=== PATIENT | male | born 1985 | race Caucasian/White ===

== ENCOUNTER 2020-12-23 19:27 | Emergency (ER) | payer MEDICAID, OTHER ==
[~2020-12-23] VITALS: Ht 165.1 cm; Wt 55.0 kg
--- NOTE | 2020-12-23 19:41 | ED General ---
General Stated Complaint: CARDIAC ARREST History of Present Illness Date Seen by Provider: Dec 23, 2020 Time Seen by Provider: 19:36 Initial Comments 35-year-old male brought in by EMS. Patient was called out on a nonresponsive male. Male has multiple chronic medical issues is on dialysis. Patient was taking home dialysis when the family noticed he went unresponsive. There was approximately 20 minutes of nonresponsive episode. When EMS arrived initial rhythm showed asystole. Patient received 2 rounds of epi with return to [facility]. Patient's blood sugar was initially 26 he received 2 A of D50. He received amp of sodium bicarb. Patient was intubated in the field. Patient was started to have spontaneous breathing and was given 5 the VAC and 5 mg Versed. Upon arrival to the ER. Patient intubated, unable to provide any HPI. Heart rate is 80 with sinus rhythm. Patient does have significant amount of diarrheal stools that smell somewhat like C. difficile. No reports of recent illness. Allergies and Home Medications Allergies Coded Allergies: No Allergy Information Available (Unverified , 12/23/20) intubated, post cpr Patient Home Medication List Home Medication List Reviewed: Yes Review of Systems Review of Systems Constitutional: see HPI EENTM: see HPI Respiratory: see HPI Cardiovascular: see HPI Genitourinary: see HPI Musculoskeletal: see HPI Skin: see HPI Psychiatric/Neurological: See HPI Patient intubated unable to provide further information Past Yhpgnig-Nizeez-Zsvsvi Hx Past Med/Social Hx: Reviewed Nursing Past Med/Soc Hx Physical Exam Vital Signs Vital Signs - First Documented 12/23/20 12/23/20 19:45 21:55 Temp 35.8 Pulse 87 Resp 16 B/P (MAP) 68/46 (53) Pulse Ox 95 O2 Delivery Ambu Bag O2 Flow Rate 15.00 Capillary Refill : Height, Weight, BMI Height: '" Weight: lbs. oz. kg; BMI Method: General Appearance: Other (Intubated, large amount of watery stool) Respiratory: Lungs Clear, Other (Intubated) Cardiovascular: Regular Rate, Rhythm, Normal Peripheral Pulses Gastrointestinal: Other (Large midline scar) Neurologic/Psychiatric: Other (Intubated, unable to obtain) Skin: Other (Port in right chest, IO in left femur) Focused Exam Possible Source: Other (post cpr, cardiac arrest ) Lactate Level 12/23/20 19:35: Lactic Acid Level 13.18*H Respiratory: Other (intubated on vent ) Cardiovascular: Regular Rate, Rhythm, No Edema Peripheral Pulses: 1+ Carotid (R), 1+ Carotid (L) Lactic Acid Level Laboratory Tests Test 12/23/20 19:35 Lactic Acid Level 13.18 MMOL/L (0.50-2.00) *H Progress/Results/Core Measures Suspected Sepsis SIRS Temperature: Pulse: Respiratory Rate: Laboratory Tests 12/23/20 19:35: White Blood Count 9.2 Blood Pressure / Mean: 12/23/20 19:35: Lactic Acid Level 13.18*H Laboratory Tests 12/23/20 19:35: Creatinine 6.11H, Platelet Count 64L, Total Bilirubin 0.6 Results/Orders Lab Results Laboratory Tests Test 12/23/20 19:35 12/23/20 19:54 12/23/20 20:27 12/23/20 20:52 Range/Units White Blood Count 9.2 4.3-11.0 10^3/uL Red Blood Count 3.73 L 4.35-5.85 10^6/uL Hemoglobin 10.9 L 13.3-17.7 G/DL Hematocrit 38 L 40-54 % Mean Corpuscular Volume 101 H 80-99 FL Mean Corpuscular Hemoglobin 29 25-34 PG Mean Corpuscular Hemoglobin Concent 29 L 32-36 G/DL Red Cell Distribution Width 18.9 H 10.0-14.5 % Platelet Count 64 L 130-400 10^3/uL Mean Platelet Volume 11.0 H 7.4-10.4 FL Immature Granulocyte % (Auto) 1 % Neutrophils (%) (Auto) 70 42-75 % Lymphocytes (%) (Auto) 22 12-44 % Monocytes (%) (Auto) 7 0-12 % Eosinophils (%) (Auto) 0 0-10 % Basophils (%) (Auto) 0 0-10 % Neutrophils # (Auto) 6.5 1.8-7.8 X 10^3 Lymphocytes # (Auto) 2.0 1.0-4.0 X 10^3 Monocytes # (Auto) 0.6 0.0-1.0 X 10^3 Eosinophils # (Auto) 0.0 0.0-0.3 10^3/uL Basophils # (Auto) 0.0 0.0-0.1 10^3/uL Immature Granulocyte # (Auto) 0.1 0.0-0.1 10^3/uL Sodium Level 133 L 135-145 MMOL/L Potassium Level 3.1 L 3.6-5.0 MMOL/L Chloride Level 87 L 98-107 MMOL/L Carbon Dioxide Level 13 L 21-32 MMOL/L Anion Gap 33 H 5-14 MMOL/L Blood Urea Nitrogen 33 H 7-18 MG/DL Creatinine 6.11 H 0.60-1.30 MG/DL Estimat Glomerular Filtration Rate 10 BUN/Creatinine Ratio 5 Glucose Level 147 H 70-105 MG/DL Lactic Acid Level 13.18 *H 0.50-2.00 MMOL/L Calcium Level 7.9 L 8.5-10.1 MG/DL Corrected Calcium 8.4 L 8.5-10.1 MG/DL Magnesium Level 2.2 1.6-2.4 MG/DL Total Bilirubin 0.6 0.1-1.0 MG/DL Aspartate Amino Transf (AST/SGOT) 605 H 5-34 U/L Alanine Aminotransferase (ALT/SGPT) 390 H 0-55 U/L Alkaline Phosphatase 205 H 40-136 U/L Total Protein 6.7 6.4-8.2 GM/DL Albumin 3.4 3.2-4.5 GM/DL Glucometer 119 H 107 70-110 MG/DL Blood Gas Puncture Site RT RADIAL Blood Gas Patient Temperature 35.9 Arterial Blood pH 7.11 *L 7.37-7.43 Arterial Blood Partial Pressure CO2 39 35-45 MMHG Arterial Blood Partial Pressure O2 67 L 79-93 MMHG Arterial Blood HCO3 12 *L 23-27 MMOL/L Arterial Blood Total CO2 13.6 L 21.0-31.0 MMOL/L Arterial Blood Oxygen Saturation 84 L 94-100 % Arterial Blood Base Excess -16.3 L -2.5-2.5 MMOL/L Nicko Test Blood Gas Ventilator Setting YES Blood Gas Inspired Oxygen 15 L My Orders Orders - DACOSTA,SHANEKA L DO Cbc With Automated Diff (12/23/20 19:28) Comprehensive Metabolic Panel (12/23/20 19:28) Magnesium (12/23/20 19:28) Lactic Acid Analyzer (12/23/20 19:28) Arterial Blood Gas (12/23/20 19:28) Chest 1 View Ap/Pa Only (12/23/20 19:28) Accucheck Stat ONCE (12/23/20 19:28) Ed Iv/Invasive Line Start (12/23/20 19:28) Ekg Tracing (12/23/20:28) End Tidal Co2 (12/23/20:28) C Difficile Ag + Toxin A/B. (12/23/20 19:33) Isolation Central Supply Req (12/23/20 19:33) Norepinephrine 4 Mg/250 Ml (Norepinephri (12/23/20 19:45) Ed Iv/Invasive Line Start (12/23/20 19:43) Ns Iv 500 Ml (Sodium Chloride 0.9%) (12/23/20 19:45) Ed Iv/Invasive Line Start (12/23/20 20:14) Ns Iv 1000 Ml (Sodium Chloride 0.9%) (12/23/20 20:15) Arterial Blood Gas (12/23/20 20:12) Midazolam Injection (Versed Injection) (12/23/20 20:34) Norepinephrine 4 Mg/250 Ml (Norepinephri (12/23/20 19:47) Potassium Cl 10meq/50ml Ivpb (Kcl 10 Meq (12/23/20 21:30) Lactated Ringers (Lr 1000 Ml Iv Solution (12/23/20 21:25) Sodium Bicarbonate 8.4% Syr (Sodium Bica (12/23/20 21:29) Medications Given in ED Current Medications Medications Dose Ordered Sig/Ellie Route Start Time Stop Time Status Last Admin Dose Admin Midazolam HCl 2 mg STK-MED ONCE .ROUTE 12/23/20 20:34 12/23/20 20:40 DC 12/23/20 20:49 2 MG Potassium Chloride 50 ml @ 50 mls/hr ONCE ONCE IV 12/23/20 21:30 12/23/20 22:13 DC 12/23/20 21:38 50 MLS/HR Sodium Bicarbonate 50 meq STK-MED ONCE .ROUTE 12/23/20 21:29 12/23/20 21:35 DC 12/23/20 21:38 50 MEQ Sodium Chloride 1,000 ml @ 125 mls/hr Q8H ONCE IV 12/23/20 20:15 12/23/20 22:13 DC 12/23/20 20:49 125 MLS/HR Vital Signs/I&O 12/23/20 12/23/20 12/23/20 12/23/20 19:45 20:07 21:55 21:55 Temp 35.8 Pulse 87 88 87 87 Resp 16 24 B/P (MAP) 68/46 (53) 73/36 137/75 137/75 Pulse Ox 95 100 O2 Delivery Ambu Bag Mechanical Ventilator O2 Flow Rate 15.00 12/24/20 00:00 Intake Total 1160 ml Balance 1160 ml Capillary Refill : Progress Note : Time: 20:37 Progress Note Patient's initial blood pressure upon arrival was systolic 51. Patient was given a total of 1.5 L IV fluid, started on Levophed. Patient's blood pressure improved to systolics in the 130s on Levophed 0.3 mics. Patient was critical but stable and transferred to [facility]. Patient was accepted by Dr. Garcia. There was a delay in transfer because but no [facility] there were no phone calls being directed in for to return our call with excepting a bed assignment. I did return to call back. At that time we received excepting, bed assignment. Recommendation was for 1 amp sodium bicarb, another liter of LR, potassium chloride IV, and increased vent rate to 24. Patient did however stabilize throughout his stay has been with heart rate 86 oxygen remained to 100%. Blood pressure stabilized around the 130s 140s on Levophed 0.3 mics. W ECG Initial ECG Impression Date: Dec 23, 2020 Initial ECG Impression Time: 19:38 Initial ECG Rhythm: Normal Sinus, PVC Comment st depression V1-V4, non specific changes, pvc's, sinus rhythm Diagnostic Imaging Diagonstic Imaging: Xray Plain Films/CT/US/NM/MRI: chest Comments [facility] [place], [place] NAME: ANNA [facility] REC#: [id number] PT STATUS: REG ER : 1985 PHYSICIAN: SHANEKA DACOSTA DO ADMIT DATE: 12/23/20/ER FS Signed Date of Exam:12/23/20 CHEST 1 VIEW AP/PA ONLY INDICATION: Cardiopulmonary arrest. EXAMINATION: Portable chest at 7:42 p.m. FINDINGS: There is an ET tube with tip near the gonzalez. This should be withdrawn 1.0-1.5 cm. Right IJ central line tip projects over the SVC. There are bilateral perihilar alveolar infiltrates. IMPRESSION: Bilateral perihilar alveolar infiltrates. ET tube tip is near the gonzalez. Reviewed: Reviewed by Me, Reviewed/Discussed Departure Impression Primary Impression: Cardiac arrest Disposition: 02 XFER SHT-TRM HOSP Condition: Critical Transfer Transfer Reason: Exceeds level of care Time Spoke to Accepting Phy: 20:30 Transfer Facility: [facility] Method of Transfer: EMS SHANEKA DACOSTA DO Dec 23, 2020 19:41
[2020-12-23] MEDS ORDERED: NOREPINEPHRINE 4 MG/250 ML 250 ML IV SCH (19:45)
[2020-12-23] MEDS ORDERED: NS IV 500 ML 500 ML IV ONE (19:45)
[2020-12-23] MEDS ORDERED: NOREPINEPHRINE 4 MG/250 ML 250 ML IV ONE (19:47)
[2020-12-23 19:49] LABS: HEMATOCRIT 38 % (40-54); HEMOGLOBIN 10.9 G/DL (13.3-17.7); MEAN CORPUSCULAR HEMOGLOBIN 29 PG (25-34); MEAN CORPUSCULAR HGB CONC 29 G/DL (32-36); MEAN CORPUSCULAR VOLUME 101 FL (80-99); WHITE BLOOD COUNT 9.2 10^3/uL (4.3-11.0)
[2020-12-23 19:50] LABS: BASOPHILS % (AUTO) 0 % (0-10); EOSINOPHILS % (AUTO) 0 % (0-10); LYMPHOCYTES % (AUTO) 22 % (12-44); MONOCYTES # (AUTO) 0.6 X 10^3 (0.0-1.0); MONOCYTES % (AUTO) 7 % (0-12); NEUTROPHILS # (AUTO) 6.5 X 10^3 (1.8-7.8); NEUTROPHILS % (AUTO) 70 % (42-75); PLATELET COUNT 64 10^3/uL (130-400)
--- NOTE | 2020-12-23 20:01 | Diagnostic Imaging Report ---
INDICATION: Cardiopulmonary arrest. EXAMINATION: Portable chest at 7:42 p.m. FINDINGS: There is an ET tube with tip near the gonzalez. This should be withdrawn 1.0-1.5 cm. Right IJ central line tip projects over the SVC. There are bilateral perihilar alveolar infiltrates. IMPRESSION: Bilateral perihilar alveolar infiltrates. ET tube tip is near the gonzalez. Dictated by: Dictated on workstation # [id number]
[2020-12-23] MEDS ORDERED: NS IV 1000 ML 1,000 ML IV STA (20:09)
[2020-12-23 20:10] LABS: POTASSIUM 3.1 MMOL/L (3.6-5.0)
[2020-12-23 20:11] LABS: ALBUMIN 3.4 GM/DL (3.2-4.5); BILIRUBIN,TOTAL 0.6 MG/DL (0.1-1.0); CALCIUM 7.9 MG/DL (8.5-10.1); CREATININE SERUM 6.11 MG/DL (0.60-1.30); MAGNESIUM 2.2 MG/DL (1.6-2.4); TOTAL PROTEIN 6.7 GM/DL (6.4-8.2)
[2020-12-23] MEDS ORDERED: NS IV 1000 ML 1,000 ML IV ONE (20:15)
[2020-12-23 20:33] LABS: ABG PCO2 39 MMHG (35-45); ABG PH 7.11 (7.37-7.43); ABG PO2 67 MMHG (79-93)
[2020-12-23 20:34] LABS: ABG TCO2 13.6 MMOL/L (21.0-31.0)
[2020-12-23] MEDS ORDERED: MIDAZOLAM 2 MG/2 ML (VERSED) VIAL ONE (20:34)
[2020-12-23 20:35] LABS: ABG BASE EXCESS -16.3 MMOL/L (-2.5-2.5); ABG OXYGEN SATURATION 84 % (94-100); INSPIRED O2 15 L; PATIENT TEMP 35.9; VENTILATOR YES
[2020-12-23] MEDS ORDERED: LACTATED RINGERS 1,000 ML IV STA (21:25)
[2020-12-23] MEDS ORDERED: SODIUM BICARB 8.4% 50 MEQ/50 ML (ABBOTT) SYR ONE (21:29)
[2020-12-23] MEDS ORDERED: POTASSIUM CL 10MEQ/50ML IVPB 50 ML IV ONE (21:30)
[2020-12-23 21:55] VITALS: BP 137/75
== END 2020-12-23 21:55 | disposition short-term general hospital (02) ==
LOC: EDBD 19:28 → ER FS 19:28 → MERGE 19:28 → ER FS 21:55
DX: I46.9 Cardiac arrest, cause unspecified (principal)
CPT/HCPCS: 31500; 36415; 71045; 80053; 82805; 82962; 83605; 83735; 85025; 87324; 87449